=== PATIENT | male | born 1960 | race Two or more races ===

== ENCOUNTER 2020-04-26 09:25 | Outpatient (CLI) | payer OTHER ==
[~2020-04-26 09:25] MED LIST: ORPHENADRINE C100 MG PO
== END 2020-04-26 15:10 | disposition home or self-care (01) ==
LOC: SONOGRAMA 09:25
PROVIDERS: ATTEND Pathology Anatomic Pathology & Clinical Pathology
DX: E04.2 Nontoxic multinodular goiter (principal)

== ENCOUNTER 2022-05-17 20:07 | Emergency (ER) | payer OTHER ==
[~2022-05-17] VITALS: Ht 177.8 cm; Wt 86.2 kg
== END 2022-05-17 22:50 | disposition home or self-care (01) ==
LOC: ER 20:07
DX: U07.1 COVID-19 (principal)

== ENCOUNTER 2023-01-14 17:20 | Inpatient (IN) | payer OTHER ==
[~2023-01-14] VITALS: Ht 170.2 cm; Wt 81.6 kg
[2023-01-14] MEDS ORDERED: WELLBUTRIN SR150 MG (17:32)
[2023-01-14] MEDS ORDERED: SYNTHROID50 MCG (17:33)
[2023-01-14] MEDS ORDERED: ATORVASTATIN CA10 MG (17:33)
[2023-01-14 19:28] LABS: PH,URINE 5.5 (5.0-8.0); URINE APPEARANCE Cloudy; URINE BILIRRUBIN Negative (NEGATIVE); URINE BLOOD Moderate; URINE COLOR Yellow; URINE GLUCOSE Negative (NEGATIVE); URINE LEUKOCYTE Large; URINE NITRATE Positive; URINE PROTEIN 30 (NEGATIVE); URINE UROBILINOGEN 0.2 E.U./dl
[2023-01-14 19:29] LABS: URINE RBC 64.5 uL (0.0-20.8); URINE WBC 1370.3 uL (0.0-23.2)
[2023-01-14 19:35] LABS: HEMATOCRIT 44.3 % (39.0-48.0); MEAN CELL VOLUME 87.1 fL (80.0-100.00); MEAN CORPUSCULAR HEMOGLOBIN 29.6 pg (27.00-32.0); PLATELET COUNT 173 K/uL (150-450); RED BLOOD COUNT 5.08 M/uL (4.00-6.00); RED CELL DISTRIBUTION WIDTH 13.5 % (11.5-14.5)
[2023-01-14 19:37] LABS: URINE BACTERIA > 9821.5 uL (0.0-1933); URINE EPITHELIAL CELLS 0.9 uL (0.0-38.8)
[2023-01-14 19:54] LABS: ALBUMIN 3.4 gm/dL (3.4-5.0); BILIRUBIN TOTAL 0.65 mg/dL (0.3-1.2); CALCIUM 8.9 mg/dL (8.5-10.1); CREATININE SERUM 1.06 mg/dL (0.70-1.30); GFR 71.26; GLOBULINA 3.8 G/DL (2.4-3.5); POTASSIUM 3.89 mEq/L (3.5-5.1); TOTAL PROTEIN 7.2 gm/dL (6.4-8.2)
[2023-01-15 03:53] LABS: AMYLASE 53 U/L (25-115); LIPASE 17 U/L (13-75)
[2023-01-15 04:28] LABS: C-REACTIVE PROTEIN 16.9 MG/DL (0.00-0.29)
[2023-01-17 21:00] LABS: HEMATOCRIT 35.9 % (39.0-48.0); HEMOGLOBIN 12.5 g/dL (13-16.00); MEAN CELL VOLUME 85.4 fL (80.0-100.00); MEAN CORPUSCULAR HEMOGLOBIN 29.7 pg (27.00-32.0); MEAN CORPUSCULAR HGB CONC 34.8 g/dl (32.0-36.0); PLATELET COUNT 193 K/uL (150-450); RED CELL DISTRIBUTION WIDTH 14.2 % (11.5-14.5)
[2023-01-19] MEDS ORDERED: LEVOFLOXACIN750 MG PO (18:17)
[2023-01-19] MEDS ORDERED: TAMS0.4C PO ×2 (18:19→18:23)
[2023-01-19] MEDS ORDERED: OMEPRAZOLE-BIC1 EACH PO (18:20)
[2023-01-19] MEDS ORDERED: PROBIOTIC1 EAC4 PO (18:21)
[2023-01-19] MEDS ORDERED: CELEBREX100 MG PO (18:21)
[2023-01-20 10:10] LABS: % FREE PSA 2.3 % (.); free psa 1.98 ng/mL; total psa 87.4 ng/mL (0.0-4.0)
== END 2023-01-19 18:54 | disposition home or self-care (01) | DRG 690 ==
LOC: ER 17:20 → SEC-K 01-15 01:30 → MEDJ 01-15 01:30
PROVIDERS: Emergency Medicine; General Practice; ADMIT Internal Medicine Cardiovascular Disease; ATTEND Internal Medicine Cardiovascular Disease
PROC: BW40ZZZ Ultrasonography of Abdomen (ICD-10-PCS; principal; 2023-01-15)
PROC: BW4GZZZ Ultrasonography of Pelvic Region (ICD-10-PCS; 2023-01-15)
PROC: 0T9B70Z Drainage of Bladder with Drainage Device, Via Natural or Artificial Opening (ICD-10-PCS; 2023-01-15)
PROC: 0TPBX0Z Removal of Drainage Device from Bladder, External Approach (ICD-10-PCS; 2023-01-19)
DX: N39.0 Urinary tract infection, site not specified (principal); N41.0 Acute prostatitis; N40.1 Benign prostatic hyperplasia with lower urinary tract symptoms; N39.498 Other specified urinary incontinence; R33.8 Other retention of urine; B96.29 Other Escherichia coli [E. coli] as the cause of diseases classified elsewhere; R79.82 Elevated C-reactive protein (CRP)